=== PATIENT | female | born 1990 | race Caucasian/White ===

== ENCOUNTER 2017-03-15 15:00 | Outpatient (CLI) | payer BC ==
--- NOTE | ~2017-03-15 | HEMODYNAMI ---
PATIENT:LEANDER MCELROY MEDICAL RECORD: [id number] : [birth year] LOCATION:[facility] D.2117 ADMISSION DATE: 03/15/17 Generatedon:03/15/201715:54 Patient name: LEANDER MCELROY Patient #: [id number] SSN : : 1990 Date of study: 03/15/2017 Page: Of Hemodynamic Procedure Report Patient Data Patient Demographics Procedure consent was obtained First Name: LEANDER Gender: Female Last Name: LILIBETH : 1990 Patient #: [id number] Age: 27 year(s) Race: Unknown Additional ID: [id number] Contact details [address]: [address] [place] [address] State: [place] City: [place] Zip code: [address] Past Medical History Allergies Allergen Reaction Date Comments Reported Other allergy 03/15/2017 OMAPRAZOLE Admission Admission Data Admission Date: 03/15/2017 Admission Time: 15:00 Room #: D.2117 Procedure Procedure Types Cath Procedure Diagnostic Procedure [facility] w/Coronaries Miscellaneous Procedures Moderate Sedation up to 15 minutes Procedure Description Procedure Date Procedure Date: 03/15/2017 Procedure Start Time: 15:44 Procedure End Time: 15:53 Procedure Staff Name Function Bravo Song MD Performing Physician Salomon Sawyer RT Scrub Ifrah Tim RT Monitor Irwin Mtz RT Monitor Kusum Shaw RN Nurse Procedure Data Cath Procedure Fluoroscopy Diagnostic fluoroscopy Total fluoroscopy Time: 0.9 time: 0.9 min min Diagnostic fluoroscopy Total fluoroscopy dose: 63 dose: 63 mGy mGy Contrast Material Contrast Material Type Amount (ml) Isovue 300 29 Entry Location Entry Primary Successful Side Size Upsize Upsize Entry Closure Zambrano ccessful Closure Location (Fr) 1 (Fr) 2 (Fr) Remarks Device Remarks Radial Right 6 Fr Mechanical TR artery Short Compression Estimated blood loss: 5 ml Diagnostic catheters Device Type Used For End Catheter Placement Diagnostic Terumo 5Fr Procedure Nerstrand 110cm catheter Procedure Complications No complications Procedure Medications Medication Administration Route Dosage Oxygen NC 2 l/min Heparin Flush Bag added to field 2 bags (1000units/500ml NS) Lidocaine 2% added to field 20 Radial Cocktail added to field 1 syringe (Verapomil 2mg/Nitro 400mcg/Heparin 1500units) Fentanyl I.V. 50 mcg Versed I.V. 1 mg Fentanyl I.V. 50 mcg Versed I.V. 1 mg Fentanyl I.V. 50 mcg Versed I.V. 1 mg Hemodynamics Rest Heart Rate: 77 (bpm) Snapshots Pre Cath Intra NCS Post Cath Vital Signs Time Heart Resp SPO2 etCO2 NIBP (mmHg) Rhythm Pain Sedation Rate (ipm) (%) (mmHg) Status Level (bpm) 15:28:45 86 20 100 129/78(107) NSR 0 (11) 10(A) , No pain 15:33:18 93 19 100 15.7 131/89(111) NSR 0 (11) 10(A) , No pain 15:37:50 91 16 99 26.9 136/93(116) NSR 0 (11) 10(A) , No pain 15:42:25 80 17 99 17.9 140/81(101) NSR 0 (11) 9(A) , No pain 15:47:01 98 20 99 29.9 125/73(101) NSR 0 (11) 9(A) , No pain 15:51:36 96 16 93 16.4 139/73(98) NSR 0 (11) 9(A) , No pain Medications Time Medication Route Dose Verified Delivered Reason Notes Eff ectiveness by by 15:30:55 Oxygen NC 2 l/min Kusum Kusum used for [employer] 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 50 mcg Kusum Kusum for [employer] sedation RN RN 15:41:22 Versed I.V. 1 mg Kusum Kusum for [employer] sedation RN RN 15:45:09 Fentanyl I.V. 50 mcg Kusum Kusum for [employer] sedation RN RN 15:45:13 Versed I.V. 1 mg Kusum Kusum for [employer] sedation RN RN 15:46:45 Fentanyl I.V. 50 mcg Kusum Kusum for [employer] sedation RN RN 15:46:50 Versed I.V. 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 Start room use. 15:15:45 Time tracking: Regular hours 15:15:50 Plan of Care:Hemodynamics will remain stable., Cardiac rhythm will remain stable., Comfort level will be maintained., Respiratory function will remain adequate., Patient/ family verbilizes understanding of procedure., Procedure tolerated without complication., Recovers from procedure without complications.. 15:16:33 Patient received from PCU to CCL 1 Alert and oriented. Tansferred to table in Supine position. 15:16:34 Warm blankets applied, and gigi hugger turned on for patient comfort. 15:16:34 Correct patient and procedure confirmed by team. 15:16:36 Signed procedure consent form obtained from patient. 15:16:37 ECG and BP/O2 sat monitors applied to patient. 15:27:56 Vital chart was started 15:27:59 Baseline sample Acquired. 15:28:05 Rhythm: sinus rhythm 15:28:06 Full Disclosure recording started 15:28:13 H&P Date Dictated: 03/15/2017 Within 30 days and on chart.. 15:28:15 Pre-procedure instructions explained to patient. 15:28:15 Pre-op teaching completed and patient verbalized understanding. 15:28:18 Family in patients room. 15:29:07 Patient allergic to Other allergyOMAPRAZOLE 15:29:13 Is the patient allergic to Iodine/contrast media? No. 15:29:16 Is patient on blood thinner?No 15:29:21 Patient diabetic? No. 15:29:56 NOT . PT PERIOD WITHIN LAST WEEK 15:30:01 Previous problem with sedation/anesthesia? No ? 15:30:03 Snore? No 15:30:04 Sleep apnea? No 15:30:10 Deviated septum? No 15:30:11 Opens mouth fully? No 15:30:12 Sticks out tongue? Yes 15:30:19 Airway obstruction? No ? 15:30:21 Dentures? No ? 15:30:55 Oxygen 2 l/min NC was administered by Kusum Shaw RN; used for procedure; 15:31:04 Heparin Flush Bag (1000units/500ml NS) 2 bags added to field was administered by Kusum Shaw RN; used for procedure; 15:31:14 Lidocaine 2% 20ml vial added to field was administered by Kusum Shaw RN; used for procedure; 15:31:22 Radial Cocktail (Verapomil 2mg/Nitro 400mcg/Heparin 1500units) 1 syringe added to field was administered by Kusum Shaw RN; used for procedure; 15:33:00 Pre procedure: right dorsailis pedis pulse 1+ Palpable, but thready & weak; easily obliterated 15:33:06 Patient pain scale 0/10 ?. 15:33:14 IV patent on arrival in right forearm with 0.9% NaCl at [facility]. 15:33:19 Lab results completed and on chart. 15:33:24 Right Radial & Right Groin area was prepped with chlora-prep and draped in sterile fashion 15:33:29 Alarms reviewed by R. N. 15:33:29 Sharps counted by scrub and verified by R.N. 15:36:43 Use device set Radial Dx 15:36:45 Tegaderm 4 x 4 opened to sterile field. 15:36:46 Acist Manifold opened to sterile field. 15:36:47 Acist Syringe opened to sterile field. 15:36:49 Acist Hand Control opened to sterile field. 15:36:50 Medline Cath Pack opened to sterile field. 15:36:51 Bag Decanter opened to sterile field. 15:36:51 Terumo 6Fr Slender Glidesheath opened to sterile field. 15:36:52 St Cem 260cm J .035 wire opened to sterile field. 15:36:52 MBrace Wrist Support opened to sterile field. 15:37:15 IV Extension Set opened to sterile field. 15:37:36 Zero performed for pressure channel P1 15:39:12 Physician arrived 15:39:12 --------ALL STOP TIME OUT------ 15:39:13 Final Timeout: patient, procedure, and site verified with staff and physician. All members of the team are in agreement. 15:39:15 Right Radial & Right Groin site verified by team. 15:39:20 Physical assessment completed. ASA score P 2 - A patient with mild systemic disease as per Bravo Song MD. 15:39:24 Sedation plan: IV Moderate Sedation Versed, Fentanyl 15:41:17 Fentanyl 50 mcg I.V. was administered by Kusum Shaw RN; for sedation; 15:41:22 Versed 1 mg I.V. was administered by Kusum Shaw RN; for sedation; 15:44:41 Procedure started. 15:44:55 Local anesthetic to right radial artery with Lidocaine 2% by Bravo Song MD.INITIAL ACCESS ONLY 15:45:09 Fentanyl 50 mcg I.V. was administered by Kusum Shaw RN; for sedation; 15:45:13 Versed 1 mg I.V. was administered by Kusum Shaw RN; for sedation; 15:45:54 A 6 Fr Short sheath was inserted into the Right Radial artery 15:46:21 A Diagnostic Terumo 5Fr Nerstrand 110cm catheter was advanced over the wire and used for Procedure. 15:46:45 Fentanyl 50 mcg I.V. was administered by Kusum Shaw RN; for sedation; 15:46:50 Versed 1 mg I.V. was administered by Kusum Shaw RN; for sedation; 15:47:27 LV gram done using HUMPHREYS 15:47:45 EF : 55 % 15:47:46 LV hemodynamics recorded. 15:47:50 Injector settings: Ml/sec: 7, Volume: 15, 15:47:57 LCA angiography performed. 15:48:21 RCA angiography performed. 15:48:27 Catheter removed. 15:48:48 Terumo TR Band Standard opened to sterile field. 15:49:02 Sheath removed intact; hemostasis achieved with Mechanical Compression to the Right Radial artery. 15:49:04 Procedure ended.(Physican Out) 15:49:16 Fluoroscopy time 00.90 minutes. 15:49:20 Fluoroscopy dose: 63 mGy 15:49:20 Flurop Dose total: 63 15:49:26 Contrast amount:Isovue 300 29ml. 15:49:59 Sharps counted by scrub and verified by R.N. 15:51:43 Procedure and supply charges have been captured, reviewed, submitted and are correct. 15:52:03 TR band inflated with 10cc of air. 15:52:09 Insertion/operative site no bleeding no hematoma. 15:52:32 Post-procedure physical assessment completed. ASA score P 2 - A patient with mild systemic disease as per Bravo Song MD. 15:52:38 Post procedure rhythm: sinus rhythm 15:52:40 Estimated blood loss: 5 ml 15:52:42 Post procedure instruction explained to patient.Patient verbalizes understanding. 15:52:42 Patient needs reinforcement of post procedure teaching. 15:52:58 Procedure Complication : No complications 15:53:37 Vital chart was stopped 15:53:38 See physician's report for complete and final results. 15:53:41 Report given to PCU. 15:53:44 Patient transfered to PCU with Stretcher. 15:53:46 Procedure ended. 15:53:46 Full Disclosure recording stopped 15:53:50 End room use (Document Last) Device Usage Item Name Manufacture Quantity Catalog Hospital Part Current Minimal Lot# / Number Charge Number Stock Stock Serial# Code Tegaderm 4 1 [id number] 281391 374122 5 x 4 Acist Acist 1 43289 488868 412858 867699 5 Manifold [employer] Inc Acist Acist 1 98122 351256 635535 696882 20 Syringe Medical [employer] Inc Acist Hand Acist 1 34574 772304 331541 559214 5 Control Medical Systems Inc Medline Cardinal 1 [id number] 527130 27132 330018 5 Cath Pack Health Bag Microtek 1 2001S 227483 66068 296956 5 Decanter [employer] Inc. Terumo 6Fr Terumo 1 [id number] 022626 819406 406469 [address] St Cem 1 656199 733049 425066 248157 30 260cm J .035 wire MBrace Advanced 1 140-0250-00 423339 81733 934205 5 Wrist Vascular Support Dynamics IV Hospira 1 636217 53126 460905 5 Extension Set Diagnostic Terumo 1 40-8922 121758 516230 944228 5 Terumo 5Fr Nerstrand 110cm catheter Terumo TR Terumo 1 [id number] 695529 804215 315685 40 Band Standard Signature Audit [place] Stage Time Signature Unsigned Intra-Procedure 03/15/2017 Ifrah Tim 3:54:04 PM RT(R) Signatures Monitor : Ifrah Tim Signature : RT Date : Time : Monitor : Irwin Mtz RT Signature : Date : Time : [address] [place] [address]
--- NOTE | 2017-03-15 15:18 | NUR ---
RECIEVED FROM EMS. CONSENTS SIGNED FOR [facility]. 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 WILL CONT. PLAN OF CARE.
[2017-03-15 15:20] VITALS: BP 134/84; BMI 19.8
--- NOTE | 2017-03-15 16:16 | NUR ---
BACK FROM IMMIGRATION CASE WORKER. VS WNL. RIGHT WRIST STABLE WITH TR BAND INTACT. WILL MONITOR.
[2017-03-15] MEDS ORDERED: MEDROL DOSE PACK4 MG PO (17:53)
--- NOTE | 2017-03-15 18:30 | NUR ---
TR BAND DCD WITHOUT BLEEDING OR HEMATOMA NOTED. IV AND TELEMETRY DCD. DC PLANS GIVEN. UNDERSTANDING VOICED. ESCORTED TO CAR BY W/C.
--- NOTE | 2017-03-15 18:37 | NUR ---
ESCORTED TO CAR BY W/C.
--- NOTE | 2017-03-17 16:56 | DS ---
PATIENT:LEANDER MCELROY :89 MEDICAL RECORD: [id number] DISCHARGE SUMMARY ADMISSION DATE: 03/15/17 DISCHARGE DATE: 03/15/17 DISCHARGE DIAGNOSES: 1. Chest pain. 2. Abnormal ECG. 3. Elevated troponin. HOSPITAL COURSE: Mrs. Mcelroy presents with chest pain. She has an abnormal ECG, abnormal troponin; however, cardiac catheterization was normal. Most likely, she has prior pericarditis. She was sent home with nonsteroidal therapy, as well as a Medrol Dosepak, will follow up with [facility] in 2-3 weeks with an echocardiogram. TRANSINT:[id number] Voice Confirmation ID: [id number] DOCUMENT ID: [id number] ABDIAS PERRY MD at 1656 CC: [id number] DICTATION DATE: 03/15/17 1554 DATA STEWARD: 03/16/17 0014 DIS IN 03/15/17 [facility] [address] [place] [address]
--- NOTE | 2017-03-17 16:56 | HP ---
PATIENT: LEANDER MCELROY MEDICAL RECORD: [id number] ACCOUNT: [id number] LOCATION:[address] : [birth year] ADMISSION DATE: 03/15/17 HISTORY AND PHYSICAL EXAMINATION DIAGNOSES: 1. Chest pain. 2. Abnormal elevated troponin. 3. Abnormal ECG. HISTORY OF PRESENT ILLNESS: Mrs. Mcelroy presents to [facility] with multiple days of chest pain, chest discomfort, found to have an elevated troponin. Her EKG has ST-T flattening throughout the anterolateral leads. She continues to have the episodes of chest discomfort, it is a pressure-like sensation in the anterior chest. PHYSICAL EXAMINATION: GENERAL APPEARANCE: Well-nourished, well-developed, appears stated age. Level of distress, comfortable. PSYCHIATRIC: Mental status, alert, normal affect. Orientation, oriented to time, place and person. EYES: Lids and conjunctiva, noninjected. No discharge, no pallor. ENT: Lips, teeth, gums, normal dentition. Oropharynx, no cyanosis, no pallor. NECK: Carotid arteries, bilateral normal upstroke, no bruits, no thrills. JUGULAR VEINS: No jugular venous pressure or distention. CERVICAL LYMPH NODES: Nontender, nonenlarged. THYROID: Not enlarged. Nontender. No nodules. LUNGS: Respiratory effort, unlabored. CHEST: Normal curvature. No thoracic deformity. No chest wall tenderness. Percussion, resonant. Auscultation, clear. No wheezes, no rales, no rhonchi. CARDIOVASCULAR: Precordial exam, nondisplaced. No heaves or pericardial thrills. Rate and rhythm, regular. Heart sounds, normal S1, normal S2. No S3, no gallop, no rub. Systolic murmur, not heard. Diastolic murmur, not heard. EXTREMITIES: No cyanosis, no edema. Peripheral pulses, full and equal in all extremities, except as noted. No bruits appreciated. ABDOMEN: Soft, nondistended. Normal aorta. No bruit. Nontender. No masses. Liver, nontender, no hepatomegaly. Spleen, nontender, no splenomegaly. MUSCULOSKELETAL: No joint tenderness. No joint swelling. No erythema. NEUROLOGICAL: Normal gait, normal strength, normal tone. SKIN: Warm and dry. REVIEW OF SYSTEMS: The patient reports easy bruising but reports no swollen glands. The patient reports no fever, no night sweats, no significant weight gain, no significant weight loss. No significant exercise tolerance. The patient reports no dry eyes, no irritation, no vision change. Patient reports no difficulty hearing and no ear pain. Patient reports no frequent nose bleeds or nose and sinus problems. Patient reports on arm pain on exertion. No shortness of breath while lying down. No history of heart murmur. Patient reports no cough, no wheezing or coughing up blood. Patient reports no abdominal pain, no vomiting. Normal appetite. No diarrhea and not vomiting blood. No nausea and no constipation. Patient reports no incontinence. No difficulty urinating. No hematuria. No increased frequency. Patient reports no muscle aches. No weakness, no arthralgias, no back pain. No swelling of the extremities. Patient reports no abnormal mole, no jaundice, no rashes. Reports no loss of consciousness. No weakness and no numbness. No seizures, dizziness, HISTORY AND PHYSICAL [id number] MCELROY,LEANDER or headaches. The patient reports no depression, no sleep disturbance, feeling safe in a relationship and no alcohol abuse. Patient reports on fatigue. Reports no runny nose or sinus pressure. No itching, no hives, and no frequent sneezing. OVERALL IMPRESSION: Chest discomfort compatible with angina, abnormal troponin, abnormal ECG, even though she is 27, I cannot ignore the troponin and ECG. The ECG is not compatible with pericarditis which is most likely in her age group. We will proceed with coronary angiography. She is off of her period just days ago and been on control since and has not had intercourse since and this is not an issue with cardiac catheterization. Further care depends upon findings of the catheterization. TRANSINT:[id number] Voice Confirmation ID: [id number] DOCUMENT ID: [id number] ABDIAS PERRY MD at 1656 CC: [id number] DICTATION DATE: 03/15/17 155 MANAGER TRANSIT: 03/15/17 1613 DIS IN 03/15/17 [facility] [address] [place] [id number]
--- NOTE | 2017-03-17 16:56 | OP ---
PATIENT NAME: LEANDER MCELROY MEDICAL RECORD: [id number] :89 LOCATION:D.M2 D.2117 ADMISSION DATE:03/15/17 SURGEON: ABDIAS PERRY MD DATE OF OPERATION: 03/15/2017 PROCEDURES: 1. Left heart catheterization. 2. Selective coronary angiography. 3. Left ventriculogram. INDICATION: Chest pain compatible with angina, abnormal ECG, abnormal troponin. PROCEDURE IN DETAIL: After informed consent was obtained and after detailed explanation of risks and benefits as well as alternative therapies, the patient elected to proceed with angiogram and heart catheterization. The right radial area was prepped and draped in normal sterile fashion. The right radial artery was cannulated via modified Seldinger technique with placement of a 5-Sinhala sheath. All catheters were exchanged through the sheath. FINDINGS: The left ventriculogram was performed in standard 30-degree HUMPHREYS view, reveals good cardiac wall motion throughout all segments. Overall ejection fraction is 60%. SELECTIVE CORONARY ANGIOGRAPHY: Left main, left anterior descending, left circumflex, and right coronary artery are all smooth-walled vessels with no angiographic evidence of coronary artery disease. OVERALL IMPRESSION: No angiographic evidence of coronary artery disease. Normal left heart pressures. Chest pain is most likely pericarditic in nature. TRANSINT:[id number] Voice Confirmation ID: [id number] DOCUMENT ID: [id number] ABDIAS PERRY MD at 1656 CC: [id number] DICTATION DATE: 03/15/17 1556 GAME WARDEN: 03/15/17 1809 DIS IN 03/15/17 [id number] [place] [address]
== END 2017-03-15 18:37 | disposition home or self-care (01) ==
LOC: OBSVTIME → D.OPS 15:00 → D.M2 15:00 → UNDOADMOB 15:00 → OBSVTIME 15:00 → D.M2 15:00 → D.OPS 18:37 → D.M2 18:37
DX: R07.9 Chest pain, unspecified (principal); R79.89 Other specified abnormal findings of blood chemistry; R94.31 Abnormal electrocardiogram [ECG] [EKG]